=== PATIENT | female | born 1970 | race Caucasian/White ===

== ENCOUNTER → 2017-03-12 15:25 | Outpatient (CLI) | payer MEDICAID ==
[2016-01-23 07:27] VITALS: BMI 35.2
[~2017-03-12 15:25] MED LIST: ASPIRIN325 MG PO; OXYCODONE HCL5 MG PO
== END | disposition home or self-care (01) ==
LOC: D.US 13:00
DX: D25.9 Leiomyoma of uterus, unspecified (principal)

== ENCOUNTER → 2017-03-30 07:11 | Outpatient (CLI) | payer MEDICAID ==
[2016-01-23 07:27] VITALS: BMI 35.2
== END ==
LOC: D.MRI 03-23 14:30
DX: M54.5 Low back pain (principal)

== ENCOUNTER 2017-04-13 12:13 | Inpatient (IN) | payer MEDICAID ==
[~2017-04-13] VITALS: Ht 167.6 cm; Wt 95.2 kg
--- NOTE | ~2017-04-13 | HEMODYNAMI ---
PATIENT:CHRISTINE BALLESTEROS MEDICAL RECORD: [id number] : 66 LOCATION:[facility] D2116 ADMISSION DATE: 04/13/17 Generatedon:04/14/201716:13 Patient name: CHRISTINE BALLESTEROS Patient #: [id number] SSN: D OB: 1970 Date of study: 04/14/2017 Page: Of Hemodynamic Procedure Report Patient Data Patient Demographics Procedure consent was obtained First Name: CHRISTINE Gender: Female Last Name: FAVIAN : 1970 Patient #: [id number] Age: 46 year(s) Race: Additional ID: [id number] Contact details Address: [address] [place] [address] [place] State: [place] City: [facility] [place] Zip code: [address] Past Medical History Allergies: No known allergies Admission Admission Data Admission Date: 04/13/2017 Admission Time: 12:13 Room #: [facility] Lab Results Lab Result Date: 04/14/2017 Lab Result Time: 0:00 Biochemistry Name Units Result Min Max BUN mg/dl 11 --(-*--)-- 7 18 Creatinine mg/dl 0.9 --(-*--)-- 0.6 1.3 CBC Name Units Result Min Max Hemoglobin g/dl 12.5 *-(----)-- 13.5 17.5 Procedure Procedure Types Cath Procedure Diagnostic Procedure LHC C w/Coronaries Procedure Description Procedure Date Procedure Date: 04/14/2017 Procedure Start Time: 16:01 Procedure End Time: 16:12 Procedure Staff Name Function Man Trinh MD Performing Physician Jeannette Heredia RT Scrub Marvel Hurley RN Nurse Solo Abbasi RT Monitor Sherman Barker RN Orthodontic Lab Technician Procedure Data Cath Procedure Fluoroscopy Diagnostic fluoroscopy Total fluoroscopy Time: 1.4 time: 1.4 min min Diagnostic fluoroscopy Total fluoroscopy dose: 197 dose: 197 mGy mGy Contrast Material Contrast Material Type Amount (ml) Isovue 300 51 Entry Location Entry Primary Successful Side Size Upsize Upsize Entry Closure Gaspar ccessful Closure Location (Fr) 1 (Fr) 2 (Fr) Remarks Device Remarks Radial Right 6 Fr Mechanical artery Short Compression Estimated blood loss: 5 ml Diagnostic catheters Device Type Used For End Catheter Placement Diagnostic Terumo 5Fr Procedure Shelly 110cm catheter Procedure Medications Medication Administration Route Dosage Oxygen NC 2 l/min Lidocaine 2% added to field 20 Heparin Flush Bag added to field 2 bags (1000units/500ml NS) 0.9% NaCl I.V. 100 ml/hr Versed I.V. 2 mg Fentanyl I.V. 100 mcg Radial Cocktail I.A. 1 syringe (Verapomil 2mg/Nitro 400mcg/Heparin 1500units) Versed I.V. 1 mg Fentanyl I.V. 50 mcg Hemodynamics Rest HGB: 12.5 (g/dl) Heart Rate: 84 (bpm) Pressure Samples Time Site Value (mmHg) Purpose Heart Use Rate(bpm) 16:04 LV 152/-6,10 Snapshot 79 16:04 AO 102/68(84) Pullback 103 16:04 LV 119/-7,9 Pullback 103 Gradients Valve Time Site 1 Site 2 Mean SEP/DFP Peak To Heart Use (mmHg) (sec/min) Peak Rate (mmHg) (bpm) Aortic 16:04 LV AO 12 8 17 103 119/-7,9 102/68(84) Calculations Valve P-P Mean Valve Index Valve Source Name Gradient Area Flow (cm2) Aortic 17 12 17 12 Snapshots Pre Cath Intra NCS Post Cath Vital Signs Time Heart Resp SPO2 etCO2 [id number] NIBP (mmHg) Rhythm Pain Sedation Rate (ipm) (%) (mmHg) (mmHg) Status Level (bpm) 15:44:13 84 21 97 0 0 154/86(96) NSR 0 (11) 10(A) , No pain 15:48:18 83 20 96 0 0 133/94(117) NSR 0 (11) 10(A) , No pain 15:54:31 90 19 97 0 0 161/78(119) NSR 0 (11) 10(A) , No pain 15:58:47 75 17 94 0 0 125/73(96) NSR 0 (11) 10(A) , No pain 16:03:03 79 19 96 0 0 121/69(107) NSR 0 (11) 9(A) , No pain 16:07:20 96 16 96 0 0 107/65(89) NSR 0 (11) 9(A) , No pain 16:10:50 94 16 96 0 0 111/84(102) NSR 0 (11) 10(A) , No pain Medications Time Medication Route Dose Verified Delivered Reason Notes Effectiveness by by 15:50:23 Oxygen NC 2 l/min Man Buffie used for [facility] Irving Hurley RN procedure 16:00:30 Lidocaine 2% added 20ml Man Man for local to vial [facility] anesthetic field MD BERRY 16:00:40 Heparin Flush added 2 bags Man Man used for Bag to [facility] procedure (1000units/500ml field MD BERRY NS) 16:00:49 0.9% NaCl I.V. 100 Man Buffie Per ml/hr [facility] Irving Hurley RN physician 16:01:47 Fentanyl I.V. 100 mcg Man Grier for sedation [facility] Irving Hurley RN, MD 16:01:58 Versed I.V. 2 mg Man Betheaie for sedation [facility] Irving Hurley RN, MD 16:02:54 Radial Cocktail I.A. 1 Man Man for (Verapomil syringe [facility] vasodilation 2mg/Nitro MD BERRY 400mcg/Heparin 1500units) 16:05:09 Versed I.V. 1 mg Man Betheaie for sedation [facility] Irving Hurley RN, MD 16:05:14 Fentanyl I.V. 50 mcg Man Grier for sedation [facility] Irving Hurley RN, MD Procedure Log Time Note 15:24:49 Sherman Barker RN sent for patient. Start room use. 15:24:50 Time tracking: Regular hours 15:24:54 Plan of Care:Hemodynamics will remain stable., Cardiac rhythm will remain stable., Comfort level will be maintained., Respiratory function will remain adequate., Patient/ family verbilizes understanding of procedure., Procedure tolerated without complication., Recovers from procedure without complications.. 15:31:23 Patient received from PCU to CCL 1 Alert and oriented. Tansferred to table in Supine position. 15:31:24 Warm blankets applied, and leny hugger turned on for patient comfort. 15:31:25 Correct patient and procedure confirmed by team. 15:31:29 Signed procedure consent form obtained from patient. 15:32:21 Full Disclosure recording started 15:32:24 ECG and BP/O2 sat monitors applied to patient. 15:42:52 Vital chart was started 15:44:25 Baseline sample Acquired. 15:44:39 Rhythm: sinus rhythm 15:50:23 Oxygen 2 l/min NC was administered by Marvel Hurley RN; used for procedure; 15:50:57 Use device set Radial Dx 15:50:58 Acist Syringe opened to sterile field. 15:50:59 Medline Cath Pack opened to sterile field. 15:50:59 Bag Decanter opened to sterile field. 15:51:00 Terumo 6Fr Slender Glidesheath opened to sterile field. 15:51:00 St Jason 260cm J .035 wire opened to sterile field. 15:51:01 Acist Hand Control opened to sterile field. 15:51:01 Acist Manifold opened to sterile field. 15:51:02 Tegaderm 4 x 4 opened to sterile field. 15:51:02 MBrace Wrist Support opened to sterile field. 15:51:16 H&P Date Dictated: 04/13/2017 Within 30 days and on chart.. 15:51:20 Pre-procedure instructions explained to patient. 15:51:21 Pre-op teaching completed and patient verbalized understanding. 15:56:13 Family in patients room. 15:56:16 Patient NPO since Lunch. 15:56:23 Patient allergic to No known allergies 15:56:26 Is the patient allergic to Iodine/contrast media? No. 15:56:29 Is patient on blood thinner?No 15:56:34 Patient diabetic? No. 15:57:18 HCG/Urine : completed and on chart, negative 15:57:25 ----Pre-sedation anethsthesia assessment.---- 15:57:28 Previous problem with sedation/anesthesia? No ? 15:57:38 Snore? Yes 15:57:40 Sleep apnea? No 15:57:42 Deviated septum? No 15:57:44 Opens mouth fully? Yes 15:57:45 Sticks out tongue? Yes 15:57:48 Airway obstruction? No ? 15:57:52 Dentures? No ? 15:57:58 Modified Bandar's test Ulnar < 7 seconds 15:58:02 Patient pain scale 0/10 ?. 15:58:13 IV patent on arrival in right hand with 0.9% NaCl at O. 15:59:09 IV RESTARTED IN THE RIGHT FOREARM WITH 22 GUAGE BY MARVEL HURLEY RN PER PATIENT REQUEST TO GO RADIAL 15:59:39 Lab Result : BUN 11 mg/dl 15:59:39 Lab Result : Hemoglobin 12.5 g/dl 15:59:39 Lab Result : Creatinine 0.9 mg/dl 15:59:44 Lab results completed and on chart. 15:59:48 Right Radial & Right Groin area was prepped with chlora-prep and draped in sterile fashion 15:59:50 Alarms reviewed by R. N. 15:59:50 Alarms reviewed by R. N. 15:59:52 Sharps counted by scrub and verified by R.N. 15:59:53 Physician arrived 15:59:53 --------ALL STOP TIME OUT------ 15:59:54 Final Timeout: patient, procedure, and site verified with staff and physician. All members of the team are in agreement. 15:59:56 Right Radial & Right Groin site verified by team. 16:00:00 Physical assessment completed. ASA score P 2 - A patient with mild systemic disease as per Man Trinh MD. 16:00:07 Sedation plan: IV Moderate Sedation Versed, Fentanyl 16:00:30 Lidocaine 2% 20ml vial added to field was administered by Man rTinh MD; for local anesthetic; 16:00:40 Heparin Flush Bag (1000units/500ml NS) 2 bags added to field was administered by Man Trinh MD; used for procedure; 16:00:43 Zero performed for pressure channel P1 16:00:49 0.9% NaCl 100 ml/hr I.V. was administered by Marvel Hurley RN; Per physician; 16:01:14 Procedure started. 16:01:20 Local anesthetic to right radial artery with Lidocaine 2% by Man Trinh MD.INITIAL ACCESS ONLY 16:01:47 Fentanyl 100 mcg I.V. was administered by Marvel Hurley RN; for sedation; 16:01:58 Versed 2 mg I.V. was administered by Marvel Hurley RN; for sedation; 16:02:00 A 6 Fr Short sheath was inserted into the Right Radial artery 16:02:22 A Diagnostic Terumo 5Fr Shelly 110cm catheter was advanced over the wire and used for Procedure. 16:02:54 Radial Cocktail (Verapomil 2mg/Nitro 400mcg/Heparin 1500units) 1 syringe I.A. was administered by Man Trinh MD; for vasodilation; 16:04:12 LV hemodynamics recorded. 16:04:13 LV gram done using COSTELLO 16:04:28 EF : 55 % 16:05:06 LCA angiography performed. 16:05:09 Versed 1 mg I.V. was administered by Marvel Hurley RN; for sedation; 16:05:14 Fentanyl 50 mcg I.V. was administered by Marvel Hurley RN; for sedation; 16:06:10 RCA angiography performed. 16:06:18 Catheter removed. 16:06:47 Terumo TR Band Standard opened to sterile field. 16:07:10 Sheath removed intact; hemostasis achieved with Mechanical Compression to the Right Radial artery. 16:07:13 Procedure ended.(Physican Out) 16:07:35 Fluoroscopy time 01.40 minutes. 16:07:44 Fluoroscopy dose: 197 mGy 16:07:44 Flurop Dose total: 197 16:07:57 Contrast amount:Isovue 300 51ml. 16:08:05 Sharps counted by scrub and verified by R.N. 16:08:36 TR band inflated with 12cc of air. 16:08:38 Insertion/operative site no bleeding no hematoma. 16:08:46 Post right radial artery:stable 16:08:57 Post-procedure physical assessment completed. ASA score P 2 - A patient with mild systemic disease as per Man Trinh MD. 16:09:03 Post procedure rhythm: unchanged. 16:09:06 Estimated blood loss: 5 ml 16:09:09 Post procedure instruction explained to patient.Patient verbalizes understanding. 16:09:11 Patient needs reinforcement of post procedure teaching. 16:09:13 Procedure and supply charges have been captured, reviewed, submitted and are correct. 16:12:07 Vital chart was stopped 16:12:07 See physician's report for complete and final results. 16:12:11 Report given to PCU. 16:12:15 Patient transfered to PCU with Bed. 16::18 Procedure ended. 16:12:18 Full Disclosure recording stopped 16:12:22 End room use (Document Last) Device Usage Item Name Manufacture Quantity Catalog Hospital Part Current Minimal Lot# / Number Charge Number Stock Stock Serial# Code Acist Acist 1 [id number] [id number] 121874 932046 20 Syringe Medical Systems Inc Medline Cardinal 1 [id number] [id number] 79648 430620 5 Cath Pack Health Bag Microtek 1 2002S 353484 71326 144050 5 DecVNG Medical Inc. Terumo 6Fr Terumo 1 [id number] 893865 832015 989486 [address] [facility] [address] Jason 1 742980 001939 849097 688844 30 260cm J .035 wire Acist Hand Acist 1 48929 000624 046434 363313 5 Control Medical Systems Inc Acist Acist 1 95951 602700 508989 336529 5 Manifold Medical Systems Inc Tegaderm 4 3M 1 1626W 135090 000017 159791 5 x 4 MBrace Advanced 1 140-0250-00 829481 95468 523092 5 Wrist Vascular Support Dynamics Diagnostic Terumo 1 78-9791 181706 671703 374843 5 Terumo 5Fr Shelly 110cm catheter Terumo TR Terumo 1 [id number] 139056 912241 369551 40 Band Standard Signature Audit [place] Stage Time Signature Unsigned Intra-Procedure 04/14/2017 Solo Abbasi 4:12:58 PM RT(R) (CV) Signatures Monitor : Solo Abbasi RT Signature : Date : Time : [facility] [address] [place] [address]
--- NOTE | 2017-04-13 12:30 | NUR ---
RECEIVED PT FROM ADMISSIONS CAME FROM DR LAMAR'S OFFICE C/O CHEST PAIN 02/10 TELEMETRY INTACT SR RATE 58 AAOX4 RESP UNLABORED SKIN W/D COLOR WNL
[2017-04-13 12:44] VITALS: BP 137/81
[2017-04-13 12:57] LABS: BASOPHILS 0.3 % (0-2); EOSINOPHILS 1.6 % (0-7); HEMATOCRIT 41.3 % (36.0-48.0); HEMOGLOBIN 13.4 g/dL (12-16); LYMPHOCYTES 24.3 % (15-50); MCH 26.1 pg (26.0-34.0); MCHC 32.4 g/dL (31.0-37.0); MCV 80.4 fL (80.0-100.0); MEAN PLATELET VOLUME 11.3 fL (7.4-10.4); MONOCYTES 8.4 % (2-11); NEUTROPHILS 65.4 % (40-80); PLATELET COUNT 152 10x3/uL (130-400); RBC 5.14 10x6/uL (4.00-5.40); RDW 17.1 % (11.5-14.5); WBC 5.7 10x3/uL (4.8-10.8)
[2017-04-13 13:23] LABS: ALBUMIN 3.7 g/dL (3.4-5.0); ALKALINE PHOSPHATASE 57 U/L (46-116); ALT (SGPT) 19 U/L (10-68); BILIRUBIN - TOTAL 0.19 mg/dL (0.2-1.3); CALC OSMOLALITY 283 mosm/kg (275-300); CALCIUM 9.5 mg/dL (8.5-10.1); CARBON DIOXIDE 28.8 mmol/L (21.0-32.0); CHLORIDE - SERUM 107 mmol/L (98-107); GLUCOSE 98 mg/dL (74-106); POTASSIUM - SERUM 4.3 mmol/L (3.5-5.1); PROTEIN - SERUM 7.2 g/dL (6.4-8.2); SODIUM 142 mmol/L (136-145); UREA NITROGEN 14 mg/dL (7-18); eGFR NON AFRICAN AMERICAN 63 mL/min (90-120)
[2017-04-13 13:36] LABS: CKMB 0.4 U/L (0.0-3.6); CREATINE KINASE 71 UL (21-215); MAGNESIUM - SERUM 2.1 mg/dL (1.8-2.4); TROPONIN-I < 0.017 ng/mL (0.000-0.060)
[2017-04-13 14:38] VITALS: BP 137/81; Ht 167.6 cm; Wt 95.2 kg
[2017-04-13 16:00] VITALS: BP 110/65
[2017-04-13 19:00] VITALS: BP 129/70
[2017-04-13 19:07] LABS: CKMB 0.3 U/L (0.0-3.6); CREATINE KINASE 64 UL (21-215)
[2017-04-13 19:12] LABS: TROPONIN-I < 0.017 ng/mL (0.000-0.060)
--- NOTE | 2017-04-13 19:15 | NUR ---
INITIAL ROUNDS MADE. PT SITTING UP IN BED WATCHING TV. NO NEEDS OR C/O VOICED AT THIS TIME. CALL LIGHT IN REACH. WILL CONT TO MONITOR.
[2017-04-14] VITALS: BP 109/73
[2017-04-14 00:59] LABS: CREATINE KINASE 63 UL (21-215); TROPONIN-I < 0.017 ng/mL (0.000-0.060)
[2017-04-14 01:20] LABS: CKMB 0.2 U/L (0.0-3.6)
--- NOTE | 2017-04-14 03:08 | NUR ---
LIVE IN HOUSEKEEPER AT BEDSIDE FOR VS. NEEDS ADDRESSED AT THIS TIME. CALL LIGHT IN REACH. WILL CONT TO MONITOR.
[2017-04-14 04:00] VITALS: BP 147/51
[2017-04-14 04:36] LABS: BASOPHILS 0.2 % (0-2); HEMATOCRIT 39.2 % (36.0-48.0); HEMOGLOBIN 12.5 g/dL (12-16); IMMATURE GRANULOCYTES 0.2 % (0-5); MCH 25.8 pg (26.0-34.0); MCHC 31.9 g/dL (31.0-37.0); MCV 80.8 fL (80.0-100.0); MEAN PLATELET VOLUME 12.1 fL (7.4-10.4); MONOCYTES 8.2 % (2-11); NEUTROPHILS 53.4 % (40-80); PLATELET COUNT 146 10x3/uL (130-400); RBC 4.85 10x6/uL (4.00-5.40); RDW 17.1 % (11.5-14.5); WBC 5.3 10x3/uL (4.8-10.8)
[2017-04-14 04:50] LABS: ANION GAP 11.2 mmol/L (8-16); BILIRUBIN - TOTAL 0.27 mg/dL (0.2-1.3); CALCIUM 8.6 mg/dL (8.5-10.1); CARBON DIOXIDE 26.7 mmol/L (21.0-32.0); CREATININE - SERUM 0.9 mg/dL (0.6-1.3); POTASSIUM - SERUM 3.9 mmol/L (3.5-5.1); PROTEIN - SERUM 6.4 g/dL (6.4-8.2)
[2017-04-14 08:00] VITALS: BP 109/68
--- NOTE | 2017-04-14 09:17 | NUR ---
TELEMETRY SB. NPO FOR LHC. CALL LIGHT IN REACH. WILL CONT. PLAN OF CARE.
[2017-04-14 12:00] VITALS: BP 110/70
[2017-04-14 14:58] LABS: HCG SERUM NEGATIVE (NEGATIVE)
--- NOTE | 2017-04-14 15:28 | NUR ---
PRE-OPS GIVEN. TO CUSTOMER OPERATIONS SPECIALIST BY BED.
[2017-04-14 16:00] VITALS: BP 124/84
--- NOTE | 2017-04-14 16:31 | NUR ---
BACK FROM [employer] PRODUCTION ASSOCIATE. VS WNL. RIGHT WRIST STABLE WITH TR BAND INTACT. WILL MONITOR.
--- NOTE | 2017-04-14 19:39 | NUR ---
RESUMED CARE OF PT, LYING IN BED RESPIRAITONS EVEN AND UNLABORED ON ROOM AIR. RIGHT HAND INFUSING NS @ 50. RIGHT WRIST TR BAND ON. 53 SB ON TELEMETRY. NO NEEDS VOICED AT THIS TIME. CALL LIGHT IN REACH. WILL CONTINUE TO MONITOR. SEE NURSE ASSESSMENT.
[2017-04-14 21:05] VITALS: BP 131/78
--- NOTE | 2017-04-14 23:44 | NUR ---
CHILI POWDER MIXER AT BEDSIDE TO OBTAIN VITALS, CALL LIGHT IN REACH. WILL CONTINUE WITH PLAN OF CARE.
[2017-04-15 01:19] VITALS: BP 107/68
[2017-04-15 06:18] VITALS: BP 124/85
--- NOTE | 2017-04-15 06:22 | NUR ---
NO CHANGES FROM PREVIOUS ASSESSMENT, CALL LIGHT IN REACH.
[2017-04-15 08:09] VITALS: BP 137/85
--- NOTE | 2017-04-15 10:52 | NUR ---
Patient Name: CHRISTINE BALLESTEROS Admission Status: Elective Accout number: [id number] Admission Date: 04-13-2017 : 1970 Admission Diagnosis: Attending: JUANY Current LOS: 2 Anticipated DC Date: 04-15-2017 Planned Disposition: Home Primary Insurance: [place] PRIVATE OPTIONS JAK Discharge Planning Comments: * Is the patient Alert and Oriented? Yes 0 * How many steps to enter\exit or inside your home? NONE 0 * PCP DR. LAMAR 0 * Pharmacy [facility] 0 * Preadmission Environment Home with Family 0 * ADLs Independent 0 * Equipment None 0 * Other Equipment [employer] - MEDICAL EQUIPMENT PROVIDER PREFERENCE 0 * List name and contact numbers for known caregivers / representatives who currently or will assist patient after discharge: STEVE BALLESTEROS, SPOUSE, 0 * Community resources currently utilized None 0 * Please name any agencies selected above. NONE 0 * Additional services required to return to the preadmission environment? No 0 * Can the patient safely return to the preadmission environment? Yes 0 * Has this patient been hospitalized within the prior 30 days at any hospital? No 0 CM MET WITH PT IN ROOM TO DISCUSS DISCHARGE PLANNING AND NEEDS. PT REPORTS LIVING AT HOME INDEPENDENTLY WITH HER SPOUSE AND CHILDREN. PT REPORTS TO BE EMPLOYED OUTSIDE THE HOME. PT HAS NO MEDICAL EQUIPMENT, WOULD LIKE TO USE [employer] IF SHE EVER NEEDS EQUIPMENT. PT HAS NO OUTSIDE SERVICES ASSISTING IN THE HOME. CM DISCUSSED AVAILABILITY OF HOME HEALTH, REHAB SERVICES AND MEDICAL EQUIPMENT. PT DENIES DISCHARGE NEEDS, REPORTS HER SPOUSE WILL PICK HER UP FOR DISCHARGE HOME LATER THIS AFTERNOON. Supervisor Winter: Ganesh Thacker
--- NOTE | 2017-04-15 12:23 | NUR ---
IV AND TELEMETRY DCD. DC PLANS GIVEN. UNDERSTANDING VOICED. ESCORTED TO CAR BY W/C.
[2017-04-15 12:52] VITALS: BP 143/70
--- NOTE | 2017-04-15 14:19 | OP ---
PATIENT NAME: CHRISTINE BALLESTEROS MEDICAL RECORD: [id number] :66 LOCATION:D.M2 D.2116 ADMISSION DATE:04/13/17 SURGEON: SHAHBAZ SCHROEDER MD OPERATION DATE: 04/14/17 PROCEDURES: 1. Left heart catheterization. 2. Selective coronary angiography. PROCEDURE IN DETAIL: After informed consent was obtained and after detailed explanation of risks, benefits, as well as alternative therapies, the patient elected to proceed with angiogram. The right radial area was prepped and draped in a normal sterile fashion. The right radial artery was cannulated via modified Seldinger technique with placement o f 5-Arabic sheath, 5-4 Radford catheter. All catheters exchanged through this sheath. The procedure was well-tolerated. The patient was returned to the francisco after sheath was removed and TR band was placed. FINDINGS: Left ventriculography was performed in standard 30 degree COSTELLO view, normal wall motion, normal systolic function. CORONARY ANATOMY: 1. LEFT MAIN: The left main is free of disease. 2. LEFT ANTERIOR DESCENDING: The left anterior descending is free of disease as is the diagonal system. 3. CIRCUMFLEX: The circumflex is free of disease as is the marginal system. 4. RIGHT CORONARY ARTERY: Dominant system, free of disease. IMPRESSION: Normal left ventricular systolic function, normal coronary anatomy. SHAHBAZ SCHROEDER MD at 1419 CC: [id number] DICTATION DATE: 04/14/17 1500 HAT SPRAYER: DM 04/15/17 0911 DIS IN 04/15/17 [facility] [address] [place] [address]
--- NOTE | 2017-04-16 11:01 | CN ---
PATIENT NAME:CHRISTINE BALLESTEROS MEDICAL RECORD: [id number] : [birth year] LOCATION:D.M2 D.2116 ADMIT DATE: 04/13/17 ACCOUNT: [id number] CONSULTING PHYSICIAN: FLOYD CARROLL MD REFERRING PHYSICIAN: FRANCINE LAMAR DO CARDIOLOGY CONSULT PROBLEM LIST: 1. Chest pain, musculoskeletal, noncardiac. HISTORY OF PRESENT ILLNESS: The patient has had one week of chest pain. It radiates down her left arm. Her left arm is weak. It is definitely positional. It radiates from her neck down her arm and into her chest. She started with just neck pain in the lower cervical spine one week ago. It has progressed to this, but it is definitely positional. Troponin is normal. Electrocardiogram is with no ST-T abnormalities. PHYSICAL EXAMINATION: HEAD, EYES, EARS, NOSE, AND THROAT: Benign. NECK: Supple. No jugular venous distention. Carotid upstroke plus two bilaterally without bruits. LUNGS: Overall clear to auscultation and percussion. HEART: Regular. Normal S1, normal S2. No S3, no S4. No murmurs. BONES, JOINTS, EXTREMITIES: No clubbing, cyanosis, or edema. OVERALL IMPRESSION: Chest pain, musculoskeletal, noncardiac. No further cardiac workup needs to be ascertained. FLOYD CARROLL MD at 1101 CC: [id number] DICTATION DATE: 04/13/17 1400 YOGA COORDINATOR: DM 04/14/17 0954 DIS IN 04/15/17 [place] [id number] [place] [address]
== END 2017-04-15 13:12 | disposition home or self-care (01) | DRG 287 ==
LOC: D.M2 12:13
PROVIDERS: Internal Medicine Interventional Cardiology; ADMIT Family Medicine
PROC: B2151ZZ Fluoroscopy of Left Heart using Low Osmolar Contrast (ICD-10-PCS; 2017-04-14)
PROC: 4A023N7 Measurement of Cardiac Sampling and Pressure, Left Heart, Percutaneous Approach (ICD-10-PCS; 2017-04-14)
PROC: B2111ZZ Fluoroscopy of Multiple Coronary Arteries using Low Osmolar Contrast (ICD-10-PCS; principal; 2017-04-14 15:24)
DX: R07.89 Other chest pain (principal); M50.223 Other cervical disc displacement at C6-C7 level; M79.602 Pain in left arm

== ENCOUNTER 2017-04-30 12:41 | Emergency (ER) | payer MEDICAID ==
[2017-04-13 14:38] VITALS: BMI 34.7
== END 2017-04-30 15:05 | disposition home or self-care (01) ==
LOC: D.ER 12:41
DX: R06.4 Hyperventilation (principal); R55 Syncope and collapse

== ENCOUNTER 2017-07-12 08:11 | Emergency (ER) | payer OTHER, MEDICAID ==
[2017-04-13 14:38] VITALS: BMI 34.7
[2017-07-12 08:48] LABS: BASOPHILS 0.4 % (0-2); EOSINOPHILS 2.5 % (0-7); HEMATOCRIT 41.9 % (36.0-48.0); HEMOGLOBIN 14.2 g/dL (12-16); LYMPHOCYTES 32.8 % (15-50); MCH 28.7 pg (26.0-34.0); MCHC 33.9 g/dL (31.0-37.0); MCV 84.6 fL (80.0-100.0); MEAN PLATELET VOLUME 12.1 fL (7.4-10.4); MONOCYTES 6.5 % (2-11); NEUTROPHILS 57.8 % (40-80); PLATELET COUNT 156 10x3/uL (130-400); RBC 4.95 10x6/uL (4.00-5.40); RDW 13.8 % (11.5-14.5); WBC 4.8 10x3/uL (4.8-10.8)
== END 2017-07-12 11:11 | disposition home or self-care (01) ==
LOC: D.ER 08:11
PROVIDERS: Emergency Medicine
DX: S80.11XA Contusion of right lower leg, initial encounter (principal); V43.52XA Car driver injured in collision with other type car in traffic accident, initial encounter; Y93.89 Activity, other specified; Y92.410 Unspecified street and highway as the place of occurrence of the external cause; S16.1XXA Strain of muscle, fascia and tendon at neck level, initial encounter; S39.012A Strain of muscle, fascia and tendon of lower back, initial encounter

== ENCOUNTER → 2017-11-04 11:09 | Outpatient (CLI) | payer MEDICAID ==
[2017-04-13 14:38] VITALS: BMI 34.7
== END | disposition home or self-care (01) ==
LOC: D.US 11:09 → D.CT 13:00
DX: R10.11 Right upper quadrant pain (principal); E04.9 Nontoxic goiter, unspecified

== ENCOUNTER 2017-11-09 09:54 | Emergency (ER) | payer MEDICAID ==
[2017-04-13 14:38] VITALS: BMI 34.7
[2017-11-09 11:04] LABS: BASOPHILS 0 % (0-2); EOSINOPHILS 1.5 % (0-7); HEMATOCRIT 37.6 % (36.0-48.0); HEMOGLOBIN 12.3 g/dL (12-16); IMMATURE GRANULOCYTES 0.2 % (0-5); LYMPHOCYTES 10.7 % (15-50); MCH 27.4 pg (26.0-34.0); MCHC 32.7 g/dL (31.0-37.0); MCV 83.7 fL (80.0-100.0); MEAN PLATELET VOLUME 11.4 fL (7.4-10.4); MONOCYTES 6.6 % (2-11); PLATELET COUNT 130 10x3/uL (130-400); RBC 4.49 10x6/uL (4.00-5.40); RDW 12.9 % (11.5-14.5); WBC 4.6 10x3/uL (4.8-10.8)
[2017-11-09 11:18] LABS: ALBUMIN 3.4 g/dL (3.4-5.0); ALKALINE PHOSPHATASE 62 U/L (46-116); ALT (SGPT) 32 U/L (10-68); BILIRUBIN - TOTAL 0.21 mg/dL (0.2-1.3); CALC OSMOLALITY 277 mosm/kg (275-300); CALCIUM 8.9 mg/dL (8.5-10.1); CARBON DIOXIDE 27.6 mmol/L (21.0-32.0); CHLORIDE - SERUM 105 mmol/L (98-107); CREATININE - SERUM 0.9 mg/dL (0.6-1.3); GLUCOSE 107 mg/dL (74-106); POTASSIUM - SERUM 3.8 mmol/L (3.5-5.1); PROTEIN - SERUM 6.9 g/dL (6.4-8.2); SODIUM 140 mmol/L (136-145); UREA NITROGEN 10 mg/dL (7-18); eGFR NON AFRICAN AMERICAN 70 mL/min (90-120)
[2017-11-09 11:24] LABS: TROPONIN-I < 0.017 ng/mL (0.000-0.060)
== END 2017-11-09 16:06 | disposition home or self-care (01) ==
LOC: D.ER 09:54
PROVIDERS: Family Medicine
DX: R06.00 Dyspnea, unspecified (principal); R07.89 Other chest pain

== ENCOUNTER → 2018-05-18 08:25 | Outpatient (CLI) | payer MEDICAID ==
[2017-04-13 14:38] VITALS: BMI 34.7
== END | disposition home or self-care (01) ==
LOC: D.MRI 08:25 → D.RAD 10:30
DX: M75.31 Calcific tendinitis of right shoulder (principal); M54.5 Low back pain

== ENCOUNTER → 2018-10-24 16:34 | Outpatient (CLI) | payer MEDICAID ==
[2017-04-13 14:38] VITALS: BMI 34.7
== END | disposition home or self-care (01) ==
LOC: D.CT 16:34
DX: R10.11 Right upper quadrant pain (principal)

== ENCOUNTER → 2018-11-18 18:21 | Outpatient (CLI) | payer MEDICAID ==
[2017-04-13 14:38] VITALS: BMI 34.7
== END | disposition home or self-care (01) ==
LOC: D.LABREF 18:21
DX: R31.9 Hematuria, unspecified (principal)

== ENCOUNTER 2018-12-13 05:44 | Day surgery (SDC) | payer MEDICAID ==
[~2018-12-13] VITALS: Ht 167.6 cm; Wt 98.9 kg
[~2018-12-13 05:44] MED LIST changes: +DEXILANT60 MG PO
[2018-12-13 06:02] LABS: HEMATOCRIT 36.6 % (36.0-48.0); HEMOGLOBIN 11.8 g/dL (12-16); MCH 25.9 pg (26.0-34.0); MCHC 32.2 g/dL (31.0-37.0); MCV 80.4 fL (80.0-100.0); MEAN PLATELET VOLUME 11.6 fL (7.4-10.4); RBC 4.55 10x6/uL (4.00-5.40); RDW 13.6 % (11.5-14.5); WBC 4.7 10x3/uL (4.8-10.8)
[2018-12-13] MEDS ORDERED: BAYER CHEWABLE81 MG PO (06:21)
[2018-12-13 06:30] VITALS: BP 158/92; Ht 167.6 cm; Wt 98.9 kg
[2018-12-13 06:37] LABS: HCG URINE NEGATIVE (NEGATIVE)
--- NOTE | 2018-12-13 10:41 | OP ---
PATIENT NAME: CHRISTINE BALLESTEROS MEDICAL RECORD: [id number] :[birth year] LOCATION:D.OPS ADMISSION DATE: SURGEON: ERNIE CARD MD DATE OF OPERATION: 12/13/2018 SURGEON: Ernie Card MD ANESTHESIA: TIVA by Dr. Latrell Rosa. PROCEDURES: Cystoscopy, hydrodistention of the bladder, intravesical Rimso installation. DIAGNOSES: Microscopic hematuria, urge urinary incontinence, interstitial cystitis. FINDINGS: Diffuse bladder inflammation. Single ureteral orifices bilaterally with no bladder tumors. ESTIMATED BLOOD LOSS: None. CLINICAL HISTORY: This is a 48-year-old female, who was seen for microscopic hematuria. She has a known left adrenal adenoma. She also describes urge urinary incontinence. On the CT scan of the abdomen and pelvis, she has an increase in the size of the left adrenal adenoma to 2.2 cm. Previously, it was 1.9 cm in size on her previous CT. The kidneys are normal. Urine cytology was negative. She has ongoing suprapubic and left flank pain. She also has urge incontinence and urinary frequency every 2 hours. She has symptoms suggestive of interstitial cystitis and we are performing cystoscopy today. If inflammation is seen, we will treat the interstitial cystitis with bladder hydrodistention and intravesical Rimso instillation. SHE IS ALLERGIC TO AMOXICILLIN, CLARITHROMYCIN, AND MEDROL DOSEPAK. She was given Ancef customer relations consultant to the OR. DESCRIPTION OF PROCEDURE: The patient was given IV sedation. She was placed into dorsal lithotomy position. Cystoscopy was performed using a 21-Cuban cystoscope with 30-degree lens. Findings are as outlined above. The bladder was inflated to 500 mL with normal saline. It was held in this distended position for about 1 minute and then the bladder was emptied through the cystoscope sheath. A 16-Cuban red rubber catheter was then introduced into the bladder and 15 mL of Rimso solution was instilled through the catheter. Once the solution was in the bladder, the catheter was removed, leaving the solution in the bladder. The patient will hold the solution in for 15 minutes and then void it out. She will be seen in followup in 2 weeks' time. TRANSINT:[id number] Voice Confirmation ID: [id number] DOCUMENT ID: [id number] ERNIE CARD MD at 1041 CC: [id number] DICTATION DATE: 12/13/18 0835 DIRECT CARE WORKER: 12/13/18 0932 [facility] [place] 12/13/18 [place] [id number] [place] [id number]
== END 2018-12-13 09:15 | disposition home or self-care (01) ==
LOC: D.OPS 05:44
PROVIDERS: Anesthesiology; ATTEND Urology
DX: N39.41 Urge incontinence (principal); R31.29 Other microscopic hematuria; N30.11 Interstitial cystitis (chronic) with hematuria; Z01.812 Encounter for preprocedural laboratory examination

== ENCOUNTER → 2019-03-07 08:18 | Outpatient (CLI) | payer MEDICAID ==
[2018-12-13 06:30] VITALS: BMI 35.2
--- NOTE | ~2019-03-07 | ST ---
PATIENT:CHRISTINE BALLESTEROS MEDICAL RECORD: [id number] SEX: F LOCATION:[facility] ORDER #: ADMISSION DATE: 03/07/19 AGE OF PATIENT: 48 REFERRING PHYSICIAN: INTERPRETING PHYSICIAN: FLOYD CARROLL MD DATE OF SERVICE: 03/07/2019 PROCEDURE: Nuclear stress testing. INDICATION: Angina. The patient was exercised on standard Amilcar protocol for 7 minutes 45 seconds achieving greater than 85% max target heart rate response with 31 mCi of sestamibi injected at peak stress, 10 mCi used previously for rest images. FINDINGS: Gated SPECT reveals preserved ejection fraction at 55% with good wall motion and thickening and brightening throughout all segments. SPECT imaging Cardiolite was used as myocardial fusion agent. There is homogeneous uptake throughout all segments at rest and stress with no evidence of inducible ischemia or previous infarction. OVERALL IMPRESSION: 1. This is a normal nuclear stress test with no evidence of inducible ischemia or previous infarction. 2. Gated SPECT reveals a preserved ejection fraction at 55%. In this patient with ongoing symptomatology, the current scan does not suggest the presence of hemodynamically significant coronary artery disease. Evaluate noncardiac etiology of chest pain. TRANSINT:[id number] Voice Confirmation ID: [id number] DOCUMENT ID: [id number] FLOYD CARROLL MD CC: FRANCINE LAMAR DO [id number] DICTATION DATE: 03/08/19 1120 RADIOGRAPHY TECHNICIAN: 03/09/19 0413 DEP CLI 03/07/19 [place] [id number] [place] [address]
[~2019-03-07 08:18] MED LIST changes: +BAYER CHEWABLE81 MG PO
== END | disposition home or self-care (01) ==
LOC: D.HCCARDIO 08:18
PROVIDERS: ATTEND Internal Medicine Interventional Cardiology
DX: I20.9 Angina pectoris, unspecified (principal)

== ENCOUNTER → 2019-03-10 09:26 | Outpatient (CLI) | payer MEDICAID ==
[2018-12-13 06:30] VITALS: BMI 35.2
--- NOTE | 2019-03-13 12:08 | EC ---
PATIENT:CHRISTINE BALLESTEROS DATE OF SERVICE: 03/10/19 SEX: F MEDICAL RECORD: [id number] DATE OF : [birth year] LOCATION:[facility] AGE OF PATIENT: 48 ADMISSION DATE: 03/10/19 REFERRING PHYSICIAN: INTERPRETING PHYSICIAN: SHAHBAZ SCHROEDER MD ECHOCARDIOGRAM REPORT ECHO CHARGES 4 ECHO COMPLETE Date: 03/10/19 CLINICAL DIAGNOSIS: CHEST PAIN, PVC'S ECHOCARDIOGRAPHIC MEASUREMENTS (adult normal given) AC root (d.<3.7cm) 3.3 cm LV Septum d (<1.2 cm> 1.8 cm Valve Excursion 1.9 cm LV Septum (systole) 2.0 cm Left Atria (s.<4.0cm> 4.9 cm LVPW d(<1.2cm) 1.4 cm RV (d.<2.3cm) 3.4 cm LVPW (sytole) 1.7 cm LV diastole(<5.6CM) 5.1 cm MV E-F(>70mm/sec) cm LV systole 3.0 cm LVOT Diameter 1.9 cm MV exc.(>10mm) 1.6 cm Est.ejection fraction (50-75%) % DOPPLER: LVIT cm/sec A 50.0 cm/sec E 73.0 cm/sec LA cm/sec RVSP 29 mmHg LVOT 100 cm/sec AOP1/2T m/s Asc. Ao 119 cm/sec RVOT 73 cm/sec RA cm/sec PA 97 cm/sec AV Gradient Peak 5.66 mmHg AV Mean 2.85 mmHg AV Area 2.7 cm MV Gradient Peak 3.20 mmHg MV Mean 1.00 mmHg MV Area cm COMMENTS: Professional Services Manager: Sigrid HUNT Seam Hammerer: 3 Dr. Trinh TAPE# PACS Pericardial Effusion N DATE OF SERVICE: 03/10/2019 Adequate 2-D echo, color-flow and spectral Doppler, and M-mode. LVH is present. LV internal dimensions are normal. Wall motion is normal. EF is greater than or equal to 55%. Aortic valve is tricuspid. No evidence of stenosis by Doppler interrogation. Left atrium is dilated at 4.9 cm. Mitral valve shows no prolapse. Physiologic MR. Right-sided chambers are grossly normal. Physiologic TR. ECHOCARDIOGRAM REPORT [id number] CHRISTINE BALLESTEROS TRANSINT:[id number] Voice Confirmation ID: [id number] DOCUMENT ID: [id number] SHAHBAZ SCHROEDER MD at 1208 CC: [id number] DICTATION DATE: 03/13/19945 LOCAL COMPANY TANKER DRIVER: 03/13/19 1155 DEP CLI 03/10/19 [place] [id number] [place] [id number]
== END | disposition home or self-care (01) ==
LOC: D.HCCARDIO 09:26
PROVIDERS: ATTEND Internal Medicine Interventional Cardiology
DX: R07.9 Chest pain, unspecified (principal)

== ENCOUNTER → 2019-12-11 09:40 | Outpatient (CLI) | payer MEDICAID ==
[2018-12-13 06:30] VITALS: BMI 35.2
== END | disposition home or self-care (01) ==
LOC: D.LABREF 09:40
PROVIDERS: ATTEND Surgery
DX: E27.9 Disorder of adrenal gland, unspecified (principal)

== ENCOUNTER 2021-01-27 09:45 | Inpatient (IN) | payer MEDICAID ==
[2021-01-27] VITALS (9 sets, daily range): BP systolic 91–175; BP diastolic 54–106; Ht 167.6 cm; Wt 104.5 kg
[~2021-01-27] VITALS: Ht 167.6 cm; Wt 104.5 kg
--- NOTE | 2021-01-27 10:19 | NUR ---
PT BECAME SWEATY, AND NAUSEATED "I DON'T FEEL GOOD" BP 91/54 (66) DR JALLOH NOTIFIED AND IVF BOLUS STARTED
[2021-01-27 10:26] LABS: CALC OSMOLALITY 278 mosm/kg (275-300); CALCIUM 9.4 mg/dL (8.5-10.1); CARBON DIOXIDE 27.8 mmol/L (21.0-32.0); CHLORIDE - SERUM 105 mmol/L (98-107); CREATININE - SERUM 0.8 mg/dL (0.6-1.3); GLUCOSE 111 mg/dL (74-106); POTASSIUM - SERUM 3.9 mmol/L (3.5-5.1); SODIUM 139 mmol/L (136-145); UREA NITROGEN 13 mg/dL (7-18); eGFR NON AFRICAN AMERICAN 80 mL/min (90-120)
[2021-01-27 10:30] LABS: APTT 27.7 SECONDS (22.8-39.4); INR 0.96 (0.85-1.17); PROTIME 11.8 SECONDS (11.6-15.0)
[2021-01-27 10:31] LABS: D-DIMER-QUANTITATIVE 0.36 ug/mLFEU (0.20-0.54)
--- NOTE | 2021-01-27 10:32 | NUR ---
"FEELS BETTER" DENIES CP. VSS
[2021-01-27 10:39] LABS: BASOPHILS 0.2 % (0-2); EOSINOPHILS 2.4 % (0-7); HEMATOCRIT 41.1 % (36.0-48.0); HEMOGLOBIN 13.7 g/dL (12-16); LYMPHOCYTE ABS# 1.73 10x3/uL (1.18-3.74); LYMPHOCYTES 35.2 % (15-50); MCH 29.1 pg (26.0-34.0); MCHC 33.3 g/dL (31.0-37.0); MCV 87.3 fL (80.0-100.0); MEAN PLATELET VOLUME 11.8 fL (7.4-10.4); MONOCYTES 7.3 % (2-11); NEUTROPHIL ABS# 2.69 10x3/uL (1.56-6.13); NEUTROPHILS 54.9 % (40-80); PLATELET COUNT 180 10x3/uL (130-400); RBC 4.71 10x6/uL (4.00-5.40); RDW 13.5 % (11.5-14.5); WBC 4.9 10x3/uL (4.8-10.8)
[2021-01-27 10:42] LABS: ALBUMIN 3.7 g/dL (3.4-5.0); ALKALINE PHOSPHATASE 75 U/L (30-120); ALT (SGPT) 28 U/L (10-68); BILIRUBIN - TOTAL 0.31 mg/dL (0.2-1.3); MAGNESIUM - SERUM 2.2 mg/dL (1.8-2.4); PRO BNP 61 pg/mL (0-125); PROTEIN - SERUM 7.4 g/dL (6.4-8.2); TROPONIN-I < 0.017 ng/mL (0.000-0.060)
--- NOTE | 2021-01-27 11:45 | NUR ---
LUNCH SERVED. SAMAN WELL
--- NOTE | 2021-01-27 11:54 | NUR ---
C/O "A LITTLE CHEST PRESSURE MAYBE A 1/10 IT SAVANNAH COMES AND GOES" 158/94
--- NOTE | 2021-01-27 12:32 | NUR ---
REPORT TO SIRISHA CORMIER
--- NOTE | 2021-01-27 12:40 | NUR ---
LAST TRIMMER RTNDD TO ROOM #9 WITH PT D/T ROOM NOT READY.
--- NOTE | 2021-01-27 12:46 | NUR ---
HS REPORTS NEW ROOM ASSIGNMENT #[id number]. SHRUTHI CALLED FOR TRANSOPORT
--- NOTE | 2021-01-27 13:10 | NUR ---
TO ROOM #[id number] VIA WC WITH RISK MANAGEMENT PROFESSIONAL, CONDITION STABLE
--- NOTE | 2021-01-27 19:30 | NUR ---
PT IN BED, AAO X 4, RESP EVEN AND UNLABORED, NO DISTRESS NOTED, CL IN REACH, SR UP X 2.
[2021-01-28] VITALS: BP 125/50
--- NOTE | 2021-01-28 01:53 | NUR ---
I have reviewed this patient and I concur with the Shift Assessment completed by the Licensed Practical Nurse today this shift.
[2021-01-28 04:00] VITALS: BP 144/77
[2021-01-28 05:58] LABS: BASOPHILS 0.4 % (0-2); HEMATOCRIT 40.1 % (36.0-48.0); HEMOGLOBIN 13.1 g/dL (12-16); IMMATURE GRANULOCYTES 0.2 % (0-5); LYMPHOCYTE ABS# 1.38 10x3/uL (1.18-3.74); LYMPHOCYTES 27.9 % (15-50); MCH 28.5 pg (26.0-34.0); MCHC 32.7 g/dL (31.0-37.0); MCV 87.4 fL (80.0-100.0); MEAN PLATELET VOLUME 12.1 fL (7.4-10.4); MONOCYTES 8.3 % (2-11); NEUTROPHIL ABS# 2.97 10x3/uL (1.56-6.13); NEUTROPHILS 60.2 % (40-80); PLATELET COUNT 185 10x3/uL (130-400); RBC 4.59 10x6/uL (4.00-5.40); RDW 13.5 % (11.5-14.5); WBC 4.9 10x3/uL (4.8-10.8)
[2021-01-28 06:29] LABS: ALBUMIN 3.2 g/dL (3.4-5.0); ANION GAP 11.1 mmol/L (8-16); BILIRUBIN - TOTAL 0.28 mg/dL (0.2-1.3); CALCIUM 8.7 mg/dL (8.5-10.1); CARBON DIOXIDE 27.6 mmol/L (21.0-32.0); CREATININE - SERUM 0.9 mg/dL (0.6-1.3); MAGNESIUM - SERUM 2.2 mg/dL (1.8-2.4); POTASSIUM - SERUM 3.7 mmol/L (3.5-5.1); PROTEIN - SERUM 6.7 g/dL (6.4-8.2)
[2021-01-28 08:10] VITALS: BP 125/88
[2021-01-28 12:00] VITALS: BP 144/87
--- NOTE | 2021-01-28 13:00 | NUR ---
NURSE REVIEWS DC INSTRUCTIONS WITH PATIENT AND REMOVES IV WITH CATH INTACT. PATIENT VERBS UNDERSTANDING OF DC AND FOLLOW UP
--- NOTE | 2021-01-28 13:18 | NUR ---
NURSE WHEELS PATIENT OUT AT THIS TIME. BELONGINGS IN HAND. PATIENT LEAVES IN NO DISTRESS.
--- NOTE | 2021-01-29 08:06 | EC ---
PATIENT:CHRISTINE BALLESTEROS DATE OF SERVICE: 01/27/21 SEX: F MEDICAL RECORD: [id number] DATE OF : [birth year] LOCATION:D.M2 D.213 AGE OF PATIENT: 50 ADMISSION DATE: 01/27/21 REFERRING PHYSICIAN: INTERPRETING PHYSICIAN: SHAHBAZ SCHROEDER MD ECHOCARDIOGRAM REPORT ECHO CHARGES 4 ECHO COMPLETE Date: 01/28/21 CLINICAL DIAGNOSIS: HX: PVCS ECHOCARDIOGRAPHIC MEASUREMENTS (adult normal given) AC root (d.<3.7cm) 3.3 cm LV Septum d (<1.2 cm> 0.9 cm Valve Excursion 1.9 cm LV Septum (systole) 1.6 cm Left Atria (s.<4.0cm> 3.0 cm LVPW d(<1.2cm) 1.0 cm RV (d.<2.3cm) 2.9 cm LVPW (sytole) 1.3 cm LV diastole(<5.6CM) 5.5 cm MV E-F(>70mm/sec) cm LV systole 4.1 cm LVOT Diameter 1.7 cm MV exc.(>10mm) 2.0 cm Est.ejection fraction (50-75%) % DOPPLER: LVIT cm/sec A 64 cm/sec E 55 cm/sec LA cm/sec RVSP 20 mmHg LVOT 66 cm/sec AOP1/2T m/s Asc. Ao 106 cm/sec RVOT 66 cm/sec RA cm/sec PA 94 cm/sec AV Gradient Peak 4.5 mmHg AV Mean 3.2 mmHg AV Area 1.7 cm MV Gradient Peak 1.5 mmHg MV Mean 0.7 mmHg MV Area cm COMMENTS: Automobile Mechanic Motor: Riccardo TYSON Lodging House Keeper: 3 Dr. Trinh TAPE# Pericardial Effusion N DATE OF SERVICE: Adequate 2D, color-flow imaging, spectral Doppler, and M-Mode. FINDINGS: No LVH. LV internal dimensions are normal. Wall motion is normal. EF is greater than or equal to 55%. Aortic valve is tricuspid. No evidence of stenosis by Doppler interrogation. Left atrium is normal at 3.0 cm. Mitral valve shows no prolapse. Trace MR. Right side is grossly normal. Trace TR. TRANSINT:[id number] Voice Confirmation ID: [id number] DOCUMENT ID: [id number] ECHOCARDIOGRAM REPORT [id number] TALOS,SHAHBAZ PALMER MD at 0806 CC: [id number] DICTATION DATE: 01/28/21 1618 DIRECTOR OF GLOBAL TALENT: 01/28/21 2314 DIS IN 01/28/21 [facility] [address] [place] [address]
== END 2021-01-28 13:10 | disposition home or self-care (01) | DRG 392 ==
LOC: D.ER 09:45 → D.M2 13:04
PROVIDERS: Family Medicine; ADMIT Emergency Medicine; ATTEND Emergency Medicine
DX: K21.9 Gastro-esophageal reflux disease without esophagitis (principal); R07.89 Other chest pain; I49.3 Ventricular premature depolarization; E66.9 Obesity, unspecified; Z68.37 Body mass index [BMI] 37.0-37.9, adult; R53.1 Weakness